=== PATIENT | male | born 1955 | race Caucasian/White ===

== ENCOUNTER → 2018-02-04 | Outpatient (CLI) | payer OTHER ==
[~2018-02-04] MED LIST: CIPR-255 PO; CLOP1TAB15 PO; COEN100C11 PO; EZET10TA63 PO; HYDR-5688 PO; LISI40TA3 PO; METO50TA16 PO; MULT-506 PO; PHEN95TA10 PO; PRAV20TA PO
== END | disposition home or self-care (01) ==
LOC: C.LABSPEC 17:30
PROVIDERS: ATTEND Nurse Practitioner Family
DX: C67.9 Malignant neoplasm of bladder, unspecified (principal)